=== PATIENT | female | born 1975 | race Two or more races ===

== ENCOUNTER 2021-10-03 10:33 | Emergency (ER) | payer BC, OTHER ==
[~2021-10-03] VITALS: Ht 162.6 cm; Wt 103.0 kg
[2021-10-03 11:06] VITALS: BP 151/79
[2021-10-03] MEDS ORDERED: LACTULOSE 20Gm/30ML SOLN PO ONE (11:45)
[2021-10-03 12:04] LABS: Basophils # (auto) 0.1 10 ^3/uL (0-0.2); Basophils % (auto) 1.1 % (0.0-2.0); Eosinophils # (auto) 0 10 ^3/uL (0-0.8); Lymphocytes % (auto) 23.6 % (10.0-50.0); Mean Corpuscular Volume 80.2 fL (80.0-100.0); Monocytes # (auto) 0.7 10 ^3/uL (0-1.3); Monocytes % (auto) 7.5 % (0.0-12.0)
[2021-10-03 12:06] LABS: Eosinophils % (auto) 0.5 % (0.0-7.0); Hematocrit 34.4 % (36.0-46.0); Hemoglobin 11.3 g/dL (12.2-16.2); Lymphocytes # (auto) 2.3 10 ^3/uL (0.4-5.4); Mean Corpuscular Hemoglobin 26.5 pg (28.0-32.0); Neutrophils # (auto) 6.5 10 ^3/uL (1.6-8.6); Neutrophils % (auto) 67.3 % (37.0-80.0); Red Blood Cells 4.28 10^6/uL (4.0-5.20); Red Cell Distribution Width 17.6 % (11.8-14.3); White Blood Cell 9.6 10^3/uL (4.4-10.8)
[2021-10-03 12:20] LABS: Albumin 3.4 g/dL (3.4-5.0); BUN/Creatinine Ratio 12.7; Calcium 9.3 mg/dL (8.5-10.1); Potassium 3.9 mmol/L (3.5-5.1)
[2021-10-03 12:24] LABS: Bilirubin, Total 0.3 mg/dL (0.2-1.0)
[2021-10-03] MEDS ORDERED: ONDANSETRON HCL 4 MG/2 ML VIAL IV ONE (12:45)
[2021-10-03] MEDS ORDERED: IOHEXOL 300 MG/ML 100ML BOTTLE IJ ONE (12:45)
[2021-10-03] MEDS ORDERED: SODIUM CHLORIDE 0.9% 1,000 ML IV ONE (12:45)
[2021-10-03 12:55] LABS: Urine Bacteria FEW /hpf (None Seen); Urine Blood 1+ /uL (Negative); Urine Hyaline Cast FEW /lpf (0 - 2); Urine Mucus FEW (None Seen); Urine WBC 95 /hpf (0 - 5)
[2021-10-03] MEDS ORDERED: AZITHROMYCIN 250 MG TAB PO ONE (14:00)
[2021-10-03] MEDS ORDERED: cefTRIAXone SOD 500 MG VL IV ONE (14:00)
[2021-10-03] MEDS ORDERED: cefTRIAXone 1GM/50ML D5W 50 ML IV ONE (14:15)
[2021-10-03] MEDS ORDERED: DOCU-94 PO (14:54)
[2021-10-03] MEDS ORDERED: LACT10SO3 PO (14:54)
[2021-10-03] MEDS ORDERED: AZIT250T8 PO (14:57)
[2021-10-03] MEDS ORDERED: HYDR2.5C39 TOP (14:58)
== END 2021-10-03 15:29 | disposition home or self-care (01) ==
LOC: ER 10:33
DX: N39.0 Urinary tract infection, site not specified (principal); K59.00 Constipation, unspecified; D25.9 Leiomyoma of uterus, unspecified; K64.4 Residual hemorrhoidal skin tags
CPT/HCPCS: 36415; 71046; 74177; 80053; 81001; 84484; 85025; 93005; 96361; 96365; 96375; 99285; J0696; J7030; Q9967; J2405

== ENCOUNTER 2022-04-03 21:51 | Inpatient (IN) | payer BC ==
[~2022-04-03] VITALS: Ht 162.6 cm; Wt 116.0 kg
[~2022-04-03 21:51] MED LIST: AZIT250T8 PO; DOCU-94 PO; HYDR2.5C39 TOP; LACT10SO3 PO
[2022-04-03 22:35] LABS: Basophils # (auto) 0.1 10 ^3/uL (0-0.2); Basophils % (auto) 0.7 % (0.0-2.0); Eosinophils # (auto) 0.1 10 ^3/uL (0-0.8); Eosinophils % (auto) 0.6 % (0.0-7.0); Hematocrit 37.7 % (36.0-46.0); Lymphocytes # (auto) 3.2 10 ^3/uL (0.4-5.4); Lymphocytes % (auto) 26.7 % (10.0-50.0); Mean Corpuscular Hemoglobin 25.5 pg (28.0-32.0); Mean Corpuscular Hgb Conc. 31.9 g/dL (32.0-36.0); Mean Corpuscular Volume 80.2 fL (80.0-100.0); Monocytes % (auto) 8.6 % (0.0-12.0); Neutrophils # (auto) 7.5 10 ^3/uL (1.6-8.6); Neutrophils % (auto) 63.4 % (37.0-80.0); Red Cell Distribution Width 15.3 % (11.8-14.3); White Blood Cell 11.9 10^3/uL (4.4-10.8)
[2022-04-03 22:51] LABS: INR 0.98 (0.9-1.15)
[2022-04-03 22:53] LABS: Albumin 3.1 g/dL (3.4-5.0); Calcium 8.6 mg/dL (8.5-10.1); Potassium 3.5 mmol/L (3.5-5.1)
[2022-04-03 23:01] LABS: BUN/Creatinine Ratio 16.3; Bilirubin, Total 0.4 mg/dL (0.2-1.0); Total Protein 7.7 g/dL (6.4-8.2)
[2022-04-04 01:09] LABS: Urine Bacteria FEW /hpf (None Seen); Urine Blood 1+ /uL (Negative); Urine Mucus FEW (None Seen); Urine Specific Gravity 1.015 (1.001-1.035); Urine WBC 16 /hpf (0 - 5)
[2022-04-04] MEDS ORDERED: TEMAZEPAM 15 MG CAP PO PRN (05:15)
[2022-04-04] MEDS ORDERED: MORPHINE SULFATE INJ 2 MG/ml SYRG IV PRN (05:15)
[2022-04-04] MEDS ORDERED: ONDANSETRON HCL 4 MG/2 ML VIAL IV PRN (05:15)
[2022-04-04] MEDS ORDERED: ACETAMINOPHEN 325 MG TAB PO PRN (05:15)
[2022-04-04] MEDS ORDERED: NITROGLYCERIN 0.4 MG SL TAB SL PRN (05:15)
[2022-04-04] MEDS ORDERED: VALS320T15 PO (10:16)
[2022-04-04] MEDS ORDERED: METO-158 PO (10:16)
[2022-04-04] MEDS: amLODIPine BESYLATE 5 MG TAB PO SCH (10:22)
[2022-04-04] MEDS: PANTOPRAZOLE 40 MG TAB PO SCH (10:22)
[2022-04-04] MEDS: ASPirin 81 mg TAB PO SCH (10:22)
[2022-04-04] MEDS: ENOXAPARIN SOD 40 MG/0.4 ML SYRINGE SC SCH (10:23)
[2022-04-04 11:57] LABS: Magnesium 2.5 mg/dL (1.6-2.6)
[2022-04-04 22:00] VITALS: BP 110/78
[2022-04-04] MEDS ORDERED: ATORVASTATIN 20 MG TAB PO SCH (22:00)
[2022-04-05 05:00] VITALS: BP 108/66
[2022-04-05 05:25] LABS: Basophils # (auto) 0.1 10 ^3/uL (0-0.2); Basophils % (auto) 0.7 % (0.0-2.0); Eosinophils # (auto) 0.1 10 ^3/uL (0-0.8)
[2022-04-05 05:27] LABS: Eosinophils % (auto) 1.7 % (0.0-7.0); Hematocrit 35.9 % (36.0-46.0); Hemoglobin 11.8 g/dL (12.2-16.2); Lymphocytes # (auto) 2.2 10 ^3/uL (0.4-5.4); Lymphocytes % (auto) 30.1 % (10.0-50.0); Mean Corpuscular Hemoglobin 27.1 pg (28.0-32.0); Mean Corpuscular Hgb Conc. 32.9 g/dL (32.0-36.0); Mean Corpuscular Volume 82.3 fL (80.0-100.0); Monocytes # (auto) 0.6 10 ^3/uL (0-1.3); Monocytes % (auto) 8.9 % (0.0-12.0); Neutrophils # (auto) 4.3 10 ^3/uL (1.6-8.6); Neutrophils % (auto) 58.6 % (37.0-80.0); Nucleated Red Blood Cells % 0.1 %; Red Blood Cells 4.36 10^6/uL (4.0-5.20); Red Cell Distribution Width 15.4 % (11.8-14.3); White Blood Cell 7.3 10^3/uL (4.4-10.8)
[2022-04-05 05:47] LABS: BUN/Creatinine Ratio 14.3; Calcium 8.9 mg/dL (8.5-10.1); Potassium 3.7 mmol/L (3.5-5.1)
[2022-04-05 09:00] VITALS: BP 127/66
[2022-04-05] MEDS: amLODIPine BESYLATE 5 MG TAB PO SCH (09:49)
[2022-04-05] MEDS: PANTOPRAZOLE 40 MG TAB PO SCH (09:49)
[2022-04-05] MEDS: ASPirin 81 mg TAB PO SCH (09:49)
[2022-04-05] MEDS: ENOXAPARIN SOD 40 MG/0.4 ML SYRINGE SC SCH (09:50)
[2022-04-05] MEDS ORDERED: NITR0.4S29 SL (12:52)
[2022-04-05 13:00] VITALS: BP 121/65
[2022-04-05 17:00] VITALS: BP 99/63
== END 2022-04-05 18:30 | disposition home or self-care (01) | DRG 206 ==
LOC: ER 21:52 → TELE 04-04 05:13 → TELE-EAST 04-04 21:31
PROVIDERS: ADMIT Nurse Practitioner; ATTEND Internal Medicine
DX: M94.0 Chondrocostal junction syndrome [Tietze] (principal); I25.110 Atherosclerotic heart disease of native coronary artery with unstable angina pectoris; Z68.41 Body mass index [BMI] 40.0-44.9, adult; I48.91 Unspecified atrial fibrillation; E66.01 Morbid (severe) obesity due to excess calories; I10 Essential (primary) hypertension; I44.0 Atrioventricular block, first degree; Z95.1 Presence of aortocoronary bypass graft; Z20.822 Contact with and (suspected) exposure to COVID-19
CPT/HCPCS: 36415; 70450; 71045; 80048; 80053; 80061; 81001; 83036; 83735; 83880; 84443; 84484; 85025; 85610; 93306; 96372; G0378